=== PATIENT | male | born 1995 | race American Indian/Alaskan Native ===

== ENCOUNTER 2017-12-05 14:52 | Emergency (ER) | payer OTHER ==
[2017-12-05] MEDS ORDERED: PROVENTIL IH ONE (16:12)
[2017-12-05] MEDS ORDERED: ATROVENT IH ONE (16:12)
--- NOTE | 2017-12-05 16:16 | Emergency Department Report ---
ED Asthma HPI - General Chief Complaint: Adult Asthma Stated Complaint: WHEEZING,CHEST PAIN,FEVER Time Seen by Provider: 12/05/17 15:54 Source: patient Mode of arrival: Ambulatory Limitations: No Limitations - History of Present Illness Initial Comments: Patient is 21 years old male history of asthma, presented to the ER with shortness of breath wheezing and cough since yesterday. Patient stated that he is out of his asthma medication. Last asthma attack was one year ago. Patient denied any nausea or vomiting. MD Complaint: "asthma attack", shortness of breath, wheezing -: Last night Asthma History: childhood onset Severity: moderate Context: recent URI Associated Symptoms: dry cough - Related Data Current Asthma Therapy: none Previous Rx's Medication Instructions Recorded Last Taken Type Albuterol Sulfate [Ventolin HFA] 2 puff IH Q4H PRN #1 hfa.aer.ad 11/07/15 Unknown Rx Loratadine [Claritin] 10 mg PO DAILY #30 tablet 11/07/15 Unknown Rx ALBUTEROL Inhaler [ProAir HFA 2 puff IH QID PRN #1 inhalation 04/17/16 Unknown Rx Inhaler] Albuterol *Only Ed* [Proventil 0.5 ml INHALATION Q4H PRN #25 nebu 04/17/16 Unknown Rx 0.5% NEBS] predniSONE [Deltasone] 20 mg PO Q12HR #10 tab 04/17/16 Unknown Rx ALBUTEROL Inhaler [ProAir HFA 2 puff IH QID PRN #1 inhalation 12/05/17 Unknown Rx Inhaler] ALBUTEROL NEB's [Proventil 0.083% 2.5 mg IH TID PRN #30 nebu 12/05/17 Unknown Rx NEBS] Prednisone [predniSONE (Lopez) ER 40 mg PO QDAY #40 tablet. 12/05/17 Unknown Rx TAB] Allergies Allergy/AdvReac Type Severity Reaction Status Date / Time No Known Allergies Allergy Verified 04/06/14 06:16 ED Review of Systems ROS: Stated complaint: WHEEZING,CHEST PAIN,FEVER Other details as noted in HPI Comment: All other systems reviewed and negative Constitutional: denies: chills Respiratory: cough, shortness of breath, SOB with exertion, SOB at rest, wheezing. denies: stridor Cardiovascular: denies: chest pain, palpitations Gastrointestinal: denies: abdominal pain, nausea, vomiting, diarrhea, hematemesis, hematochezia Skin: denies: rash ED Past Medical Hx - Past Medical History Previous Medical History?: Yes Hx Asthma: Yes - Surgical History Past Surgical History?: No - Social History Smoking Status: Never Smoker Substance Use Type: None - Medications Home Medications: Home Medications Medication Instructions Recorded Confirmed Last Taken Type Albuterol Sulfate [Ventolin HFA] 2 puff IH Q4H PRN #1 hfa.aer.ad 11/07/15 Unknown Rx Loratadine [Claritin] 10 mg PO DAILY #30 tablet 11/07/15 Unknown Rx ALBUTEROL Inhaler [ProAir HFA 2 puff IH QID PRN #1 inhalation 04/17/16 Unknown Rx Inhaler] Albuterol *Only Ed* [Proventil 0.5 ml INHALATION Q4H PRN #25 nebu 04/17/16 Unknown Rx 0.5% NEBS] predniSONE [Deltasone] 20 mg PO Q12HR #10 tab 04/17/16 Unknown Rx ALBUTEROL Inhaler [ProAir HFA 2 puff IH QID PRN #1 inhalation 12/05/17 Unknown Rx Inhaler] ALBUTEROL NEB's [Proventil 0.083% 2.5 mg IH TID PRN #30 nebu 12/05/17 Unknown Rx NEBS] Prednisone [predniSONE (Lopez) ER 40 mg PO QDAY #40 tablet. 12/05/17 Unknown Rx TAB] ED Physical Exam - General Limitations: No Limitations General appearance: alert, in no apparent distress - Head Head exam: Present: atraumatic, normocephalic, normal inspection - Eye Eye exam: Present: normal appearance, PERRL - ENT ENT exam: Present: normal exam, normal orophraynx, mucous membranes moist - Neck Neck exam: Present: normal inspection - Respiratory Respiratory exam: Present: wheezes, prolonged expiratory. Absent: respiratory distress, rales, rhonchi, stridor, accessory muscle use, decreased breath sounds - Cardiovascular Cardiovascular Exam: Present: regular rate, normal rhythm, normal heart sounds - GI/Abdominal GI/Abdominal exam: Present: soft, normal bowel sounds. Absent: distended, tenderness, guarding, rebound, rigid, organomegaly, mass, bruit, pulsatile mass - Extremities Exam Extremities exam: Present: normal inspection, full ROM, normal capillary refill - Back Exam Back exam: Present: normal inspection, full ROM. Absent: CVA tenderness (L) - Neurological Exam Neurological exam: Present: alert, oriented X3, CN II-XII intact, normal gait - Skin Skin exam: Present: warm, intact, normal color. Absent: cyanosis, diaphoretic, erythema ED Course Vital Signs 12/05/17 12/05/17 12/05/17 15:05 17:25 18:20 Temperature 100.0 F H Pulse Rate 119 H Pulse Rate [ 109 H 130 H Anterior Bilateral Throughout] Respiratory 20 Rate Respiratory 18 18 Rate [Anterior Bilateral Throughout] Blood Pressure 110/72 O2 Sat by Pulse 96 Oximetry ED Medical Decision Making - Radiology Data Radiology results: report reviewed Referring Physician: BLAZE PARHAM Patient Name: CORNEL BUNCH Date of : 1995 Sex: Male Report Date: 2017-12-05 Report Status: [place] [address] XRay Report Signed Patient: CORNEL BUNCH MR#: [id number] : 1995 Acct:[id number] Age/Sex: 21 / M ADM Date: 12/05/17 Loc: ED Attending Dr: Ordering Physician: BLAZE PARHAM Date of Service: 12/05/17 Procedure(s): XR chest 1V ap Accession Number(s): [id number] cc: BLAZE PARHAM Fluoro Time In Minutes: FINAL REPORT PROCEDURE: Chest. TECHNIQUE: Portable AP view. HISTORY: Cough shortness of breath. COMPARISON: No prior studies are available for comparison. FINDINGS: The heart and mediastinum appear normal. The lungs are clear and well expanded. There are no pleural effusions. The soft tissues and regional skeleton are unremarkable. IMPRESSION: Negative portable chest. Transcribed By: MRM Dictated By: MELVI GARCIA MD Electronically Authenticated By: MELVI GARCIA MD Signed Date/Time: 12/05/17 1232 DD/ 1232 TD/TT: 12/05/17 1232 - Medical Decision Making Patient stated that he is feeling much better, lungs clear on both sides no wheezing. Critical care attestation.: If time is entered above; I have spent that time in minutes in the direct care of this critically ill patient, excluding procedure time. ED Disposition Clinical Impression: Asthma exacerbation Disposition: DC- TO HOME OR SELFCARE Is pt being admited?: No Condition: Stable Instructions: Asthma (ED) Prescriptions: ALBUTEROL Inhaler [ProAir HFA Inhaler] 2 puff IH QID PRN #1 inhalation PRN Reason: Shortness Of Breath ALBUTEROL NEB's [Proventil 0.083% NEBS] 2.5 mg IH TID PRN #30 nebu PRN Reason: Wheezing Prednisone [predniSONE (Lopez) ER TAB] 40 mg PO QDAY #40 tablet. Referrals: PRIMARY CARE, [Primary Care Provider] - 3-5 Days Forms: Work/School Release Form(ED)
--- NOTE | 2017-12-05 16:36 | XRay Report ---
FINAL REPORT PROCEDURE: Chest. TECHNIQUE: Portable AP view. HISTORY: Cough shortness of breath. COMPARISON: No prior studies are available for comparison. FINDINGS: The heart and mediastinum appear normal. The lungs are clear and well expanded. There are no pleural effusions. The soft tissues and regional skeleton are unremarkable. IMPRESSION: Negative portable chest.
[2017-12-05 19:37] VITALS: BP 132/76
== END 2017-12-05 19:37 | disposition home or self-care (01) ==
LOC: ED 14:52
DX: J45.901 Unspecified asthma with (acute) exacerbation (principal)
CPT/HCPCS: 71045; 94644; 96372; 99283; J2930

== ENCOUNTER 2020-12-04 03:24 | Emergency (ER) | payer SELFPAY ==
--- NOTE | 2020-12-04 03:43 | Emergency Department Report ---
ED General Adult HPI - General Stated complaint: ALLERGIC REACTION Time Seen by Provider: 12/04/20 03:25 - History of Present Illness Initial comments: 24 yo AA M pt presents with complaints of facial rash x tonight. Pt states his symptoms started about 4-6 hours after taking ibuprofen. He dneies any past hx of allergies to NSAIDs and states he has taken ibuprofen in the past without any problems. Pt also denies any dysphagia, lip swelling, SOB, or chest pain/tightness. He does report diffuse itchiness to the body. He has not tried any OTC meds for his sxs per pt. PMHx of Asthma. -: Sudden - Related Data Previous Rx's Medication Instructions Recorded Last Taken Type Albuterol Sulfate [Ventolin HFA] 2 puff IH Q4H PRN #1 hfa.aer.ad 11/07/15 Unknown Rx Loratadine (Nf) [Claritin (Nf)] 10 mg PO DAILY #30 tablet 11/07/15 Unknown Rx Albuterol *Only Ed* [Proventil 0.5 ml INHALATION Q4H PRN #25 nebu 04/17/16 Unknown Rx 0.5% NEBS] Albuterol Mdi (or & Nicu Only) 2 puff IH QID PRN #1 inhalation 04/17/16 Unknown Rx [ProAir HFA Inhaler] predniSONE [Deltasone] 20 mg PO Q12HR #10 tab 04/17/16 Unknown Rx ALBUTEROL NEB's [Proventil 0.083% 2.5 mg IH TID PRN #30 nebu 12/05/17 Unknown Rx NEBS] Albuterol Mdi (or & Nicu Only) 2 puff IH QID PRN #1 inhalation 12/05/17 Unknown Rx [ProAir HFA Inhaler] Prednisone [predniSONE (Lopez) ER 40 mg PO QDAY #40 tablet.dr 12/05/17 Unknown Rx TAB] Famotidine [Pepcid] 20 mg PO BID 7 Days #14 tablet 12/04/20 Unknown Rx Loratadine [Claritin] 10 mg PO QDAY 7 Days #7 tablet 12/04/20 Unknown Rx Prednisone [predniSONE 10 mg 10 mg PO .TAPER #1 tab.ds.pk 12/04/20 Unknown Rx (6-Day Pack, 21 Tabs)] Allergies Allergy/AdvReac Type Severity Reaction Status Date / Time No Known Allergies Allergy Verified 04/06/14 06:16 ED Review of Systems ROS: Stated complaint: ALLERGIC REACTION Other details as noted in HPI Constitutional: denies: chills, diaphoresis, fever, malaise ENT: denies: ear pain, throat pain Respiratory: denies: cough, shortness of breath Cardiovascular: denies: chest pain Skin: rash. denies: change in color Neurological: denies: headache Hematological/Lymphatic: denies: swollen glands ED Past Medical Hx - Past Medical History Hx Asthma: Yes - Social History Smoking Status: Never Smoker Substance Use Type: None - Medications Home Medications: Home Medications Medication Instructions Recorded Confirmed Last Taken Type Albuterol Sulfate [Ventolin HFA] 2 puff IH Q4H PRN #1 hfa.aer.ad 11/07/15 Unknown Rx Loratadine (Nf) [Claritin (Nf)] 10 mg PO DAILY #30 tablet 11/07/15 Unknown Rx Albuterol *Only Ed* [Proventil 0.5 ml INHALATION Q4H PRN #25 nebu 04/17/16 Unknown Rx 0.5% NEBS] Albuterol Mdi (or & Nicu Only) 2 puff IH QID PRN #1 inhalation 04/17/16 Unknown Rx [ProAir HFA Inhaler] predniSONE [Deltasone] 20 mg PO Q12HR #10 tab 04/17/16 Unknown Rx ALBUTEROL NEB's [Proventil 0.083% 2.5 mg IH TID PRN #30 nebu 12/05/17 Unknown Rx NEBS] Albuterol Mdi (or & Nicu Only) 2 puff IH QID PRN #1 inhalation 12/05/17 Unknown Rx [ProAir HFA Inhaler] Prednisone [predniSONE (Lopez) ER 40 mg PO QDAY #40 tablet.dr 12/05/17 Unknown Rx TAB] Famotidine [Pepcid] 20 mg PO BID 7 Days #14 tablet 12/04/20 Unknown Rx Loratadine [Claritin] 10 mg PO QDAY 7 Days #7 tablet 12/04/20 Unknown Rx Prednisone [predniSONE 10 mg 10 mg PO .TAPER #1 tab.ds.pk 12/04/20 Unknown Rx (6-Day Pack, 21 Tabs)] ED Physical Exam - General General appearance: alert, in no apparent distress - Head Head exam: Present: atraumatic, normocephalic - Eye Eye exam: Present: other (bilaterally mild,nonerythemic periorbital/forehead rash noted without tenderness to palpation. ). Absent: scleral icterus - ENT ENT exam: Present: normal exam - Neck Neck exam: Present: normal inspection, full ROM - Respiratory Respiratory exam: Present: normal lung sounds bilaterally. Absent: respiratory distress - Cardiovascular Cardiovascular Exam: Present: regular rate, normal rhythm - Extremities Exam Extremities exam: Present: full ROM - Neurological Exam Neurological exam: Present: alert, oriented X3, normal gait - Psychiatric Psychiatric exam: Present: normal affect, normal mood - Skin Skin exam: Present: warm, dry, intact, normal color, rash ED Medical Decision Making - Medical Decision Making 24 yo AA M pt presents with complaints of facial rash x tonight. Pt states his symptoms started about 4-6 hours after taking ibuprofen. He dneies any past hx of allergies to NSAIDs and states he has taken ibuprofen in the past without any problems. Pt also denies any dysphagia, lip swelling, SOB, or chest pain /tightness. He does report diffuse itchiness to the body. He has not tried any OTC meds for his sxs per pt. PMHx of Asthma. Will treat for allergic dermatitis with prednisone and claritin. Discussed avoidance of ibuprofen for now due to possible allergy. Recommend f/u with PCP in 3-5 days. Discussed signs and symptoms that should prompt immediate return to the ED in detail with pt who verbalizes understanding. He is well-appearing, his vitals are wnl, and he is stable for discharge home. Critical care attestation.: If time is entered above; I have spent that time in minutes in the direct care of this critically ill patient, excluding procedure time. ED Disposition Clinical Impression: Allergic dermatitis, Elevated blood pressure reading Disposition: DC- TO HOME OR SELFCARE Is pt being admited?: No Condition: Stable Instructions: Contact Dermatitis, Drug Allergy, Hypertension, Adult Prescriptions: Loratadine [Claritin] 10 mg PO QDAY 7 Days #7 tablet Famotidine [Pepcid] 20 mg PO BID 7 Days #14 tablet Prednisone [predniSONE 10 mg (6-Day Pack, 21 Tabs)] 10 mg PO .TAPER #1 tab.ds.pk Referrals: PRIMARY CARE, [Primary Care Provider] - 3-5 Days [facility] [Provider Group] - 3-5 Days
[2020-12-04 03:48] VITALS: BP 140/86
== END 2020-12-04 04:01 | disposition home or self-care (01) ==
LOC: ED 03:24
DX: L23.9 Allergic contact dermatitis, unspecified cause (principal); R03.0 Elevated blood-pressure reading, without diagnosis of hypertension; J45.909 Unspecified asthma, uncomplicated; Z79.899 Other long term (current) drug therapy
CPT/HCPCS: 99282

== ENCOUNTER 2021-07-06 13:43 | Emergency (ER) | payer SELFPAY ==
[2021-07-06] MEDS ORDERED: ALBUTEROL 2.5 MG/3 ML NEBU IH ONE (14:38)
[2021-07-06] MEDS ORDERED: IPRATROPIUM 0.02% NEBU 2.5 ML IH ONE (14:38)
[2021-07-06] MEDS ORDERED: dexAMETHasone 20 MG/5 ML VIAL IM ONE (14:38)
--- NOTE | 2021-07-06 14:57 | Emergency Department Report ---
- General Chief Complaint: Dyspnea/Respdistress Stated Complaint: SOB Time Seen by Provider: 07/06/21 14:32 Source: patient Mode of arrival: Ambulatory Limitations: No Limitations - History of Present Illness Initial Comments: Patient is a 25-year-old male presents emergency room complaints of shortness of breath that began 4 days ago. Patient states that he has a history of asthma and has been out of his inhaler and nebulizer solution for 2 years. He states he has not had an exacerbation of his asthma in 2 years. He has associated cough with mucus production, subjective fever, chest tightness, sore throat. He denies any vomiting, diarrhea, pleuritic pain, leg swelling, hemoptysis. He has not been vaccinated for COVID-19. He has not been tested for COVID-19 since be coming sick. No other past medical history. No allergies to medications. He is a never smoker. - Related Data Previous Rx's Medication Instructions Recorded Last Taken Type Albuterol Sulfate [Ventolin HFA] 2 puff IH Q4H PRN #1 hfa.aer.ad 11/07/15 Unknown Rx Loratadine (Nf) [Claritin (Nf)] 10 mg PO DAILY #30 tablet 11/07/15 Unknown Rx Albuterol *Only Ed* [Proventil 0.5 ml INHALATION Q4H PRN #25 nebu 04/17/16 Unknown Rx 0.5% NEBS] Albuterol Mdi (or & Nicu Only) 2 puff IH QID PRN #1 inhalation 04/17/16 Unknown Rx [ProAir HFA Inhaler] Prednisone [predniSONE (Lopez) ER 40 mg PO QDAY #40 tablet. 12/05/17 Unknown Rx TAB] Famotidine [Pepcid] 20 mg PO BID 7 Days #14 tablet 12/04/20 Unknown Rx Loratadine [Claritin] 10 mg PO QDAY 7 Days #7 tablet 12/04/20 Unknown Rx Prednisone [predniSONE 10 mg 10 mg PO .TAPER #1 tab.ds.pk 12/04/20 Unknown Rx (6-Day Pack, 21 Tabs)] ALBUTEROL NEB's [Proventil 0.083% 2.5 mg IH TID PRN #1 box 07/06/21 Unknown Rx NEBS] Albuterol Mdi (or & Nicu Only) 2 puff IH QID PRN #1 inhalation 07/06/21 Unknown Rx [ProAir HFA Inhaler] predniSONE [Deltasone] 40 mg PO QDAY 5 Days #10 tab 07/06/21 Unknown Rx Allergies Allergy/AdvReac Type Severity Reaction Status Date / Time No Known Allergies Allergy Verified 04/06/14 06:16 ED Review of Systems ROS: Stated complaint: SOB Other details as noted in HPI Comment: All other systems reviewed and negative ED Past Medical Hx - Past Medical History Hx Asthma: Yes - Social History Smoking Status: Never Smoker Substance Use Type: None - Medications Home Medications: Home Medications Medication Instructions Recorded Confirmed Last Taken Type Albuterol Sulfate [Ventolin HFA] 2 puff IH Q4H PRN #1 hfa.aer.ad 11/07/15 Unknown Rx Loratadine (Nf) [Claritin (Nf)] 10 mg PO DAILY #30 tablet 11/07/15 Unknown Rx Albuterol *Only Ed* [Proventil 0.5 ml INHALATION Q4H PRN #25 nebu 04/17/16 Unknown Rx 0.5% NEBS] Albuterol Mdi (or & Nicu Only) 2 puff IH QID PRN #1 inhalation 04/17/16 Unknown Rx [ProAir HFA Inhaler] Prednisone [predniSONE (Lopez) ER 40 mg PO QDAY #40 tablet.dr 12/05/17 Unknown Rx TAB] Famotidine [Pepcid] 20 mg PO BID 7 Days #14 tablet 12/04/20 Unknown Rx Loratadine [Claritin] 10 mg PO QDAY 7 Days #7 tablet 12/04/20 Unknown Rx Prednisone [predniSONE 10 mg 10 mg PO .TAPER #1 tab.ds.pk 12/04/20 Unknown Rx (6-Day Pack, 21 Tabs)] ALBUTEROL NEB's [Proventil 0.083% 2.5 mg IH TID PRN #1 box 07/06/21 Unknown Rx NEBS] Albuterol Mdi (or & Nicu Only) 2 puff IH QID PRN #1 inhalation 07/06/21 Unknown Rx [ProAir HFA Inhaler] predniSONE [Deltasone] 40 mg PO QDAY 5 Days #10 tab 07/06/21 Unknown Rx ED Physical Exam - General Limitations: No Limitations General appearance: alert, in no apparent distress - Head Head exam: Present: atraumatic, normocephalic - Eye Eye exam: Present: normal appearance - ENT ENT exam: Present: mucous membranes moist - Respiratory Respiratory exam: Present: wheezes, decreased breath sounds, prolonged expiratory. Absent: respiratory distress, rales, rhonchi, stridor, chest wall tenderness, accessory muscle use - Cardiovascular Cardiovascular Exam: Present: normal rhythm, tachycardia, normal heart sounds. Absent: systolic murmur, diastolic murmur, rubs, gallop - Neurological Exam Neurological exam: Present: alert, oriented X3 - Psychiatric Psychiatric exam: Present: normal affect, normal mood - Skin Skin exam: Present: warm, dry, intact ED Course Vital Signs 07/06/21 07/06/21 13:56 16:37 Temperature 98.5 F 98.7 F Pulse Rate 109 H 112 H Respiratory 20 Rate Blood Pressure 151/82 124/80 [Right] O2 Sat by Pulse 98 Oximetry ED Medical Decision Making - Lab Data Vital Signs 07/06/21 07/06/21 13:56 16:37 Temperature 98.5 F 98.7 F Pulse Rate 109 H 112 H Respiratory 20 Rate Blood Pressure 151/82 124/80 [Right] O2 Sat by Pulse 98 Oximetry - EKG Data EKG shows normal: sinus rhythm, axis, intervals, QRS complexes, ST-T waves Rate: tachycardia - Radiology Data Radiology results: report reviewed Ordering Physician: CHRIS LOMELI Date of Service: 07/06/21 Procedure(s): XR chest routine 2V Accession Number(s): [id number] cc: CHRIS LOMELI Fluoro Time In Minutes: CHEST 2 VIEWS INDICATION / CLINICAL INFORMATION: cough, shortness of breath, chest tightness. COMPARISON: 12/05/2017 FINDINGS: SUPPORT DEVICES: None. HEART / MEDIASTINUM: No significant abnormality. LUNGS / PLEURA: No significant pulmonary or pleural abnormality. No pneumothorax. ADDITIONAL FINDINGS: No significant additional findings. IMPRESSION: 1. No acute findings. Signer Name: Alexander Galeas MD Signed: 07/06/2021 3:15 PM Workstation Name: [id number] Transcribed By: BRENDA Dictated By: Alexander Galeas MD Electronically Authenticated By: Alexander Galeas MD Signed Date/Time: 07/06/211514 DD/ 14 TD/TT: - Medical Decision Making Patient is a 25-year-old male presents emergency room complaints of shortness of breath that began 4 days ago. Patient states that he has a history of asthma and has been out of his inhaler and nebulizer solution for 2 years. He states he has not had an exacerbation of his asthma in 2 years. He has associated cough with mucus production, subjective fever, chest tightness, sore throat. He denies any vomiting, diarrhea, pleuritic pain, leg swelling, hemoptysis. He has not been vaccinated for COVID-19. He has not been tested for COVID-19 since becoming sick. No other past medical history. No allergies to medications. He is a never smoker. Vitals with tachycardia, otherwise stable, no hypoxia. On exam patient has wheezing bilaterally, prolonged expiratory phase, decreased breath sounds bilaterally. Chest x-ray: 1. No acute findings. Patient given continuous neb treatment and dexamethasone IM while in the emergency department, on repeat examination wheezing has significantly improved and patient is feeling much better and he now has good air movement with mild expiratory wheeze. Symptoms likely related to URI and acute asthma exacerbation. Discussed the possibility of COVID-19 with patient, discussed return precautions, discussed outpatient testing, discussed self quarantine. Patient has no hypoxia or signs of pneumonia on x-ray, does not meet admission criteria at this time. Patient given prescription for medications. Advised patient Please take medication as prescribed. Please increase your fluid intake over the next several days. May take Tylenol as needed for fever or body aches. Follow-up with a primary care doctor for reexamination. Return to emergency room immediately for any new or worsening symptoms including but not limited to difficulty breathing, shortness of breath, severe chest pain, unable to tolerate by mouth intake, etc. recommend for you to get outpatient COVID-19 testing and if positive please self quarantine for 10 days from onset of your symptoms. Critical care attestation.: If time is entered above; I have spent that time in minutes in the direct care of this critically ill patient, excluding procedure time. ED Disposition Clinical Impression: Upper respiratory infection Qualifiers: URI type: unspecified URI Qualified Code(s): J06.9 - Acute upper respiratory infection, unspecified Asthma exacerbation Qualifiers: Asthma severity: unspecified severity Asthma persistence: unspecified Qualified Code(s): J45.901 - Unspecified asthma with (acute) exacerbation Disposition: HOME / SELF CARE / HOMELESS Is pt being admited?: No Does the pt Need Aspirin: No Condition: Stable Instructions: Asthma, Adult, Viral Respiratory Infection Additional Instructions: Please take medication as prescribed. Please increase your fluid intake over the next several days. May take Tylenol as needed for fever or body aches. Follow-up with a primary care doctor for reexamination. Return to emergency room immediately for any new or worsening symptoms including but not limited to difficulty breathing, shortness of breath, severe chest pain, unable to tolerate by mouth intake, etc. recommend for you to get outpatient COVID-19 testing and if positive please self quarantine for 10 days from onset of your symptoms. Prescriptions: predniSONE [Deltasone] 40 mg PO QDAY 5 Days #10 tab Albuterol Mdi (or & Nicu Only) [ProAir HFA Inhaler] 2 puff IH QID PRN #1 inhalation PRN Reason: Shortness Of Breath ALBUTEROL NEB's [Proventil 0.083% NEBS] 2.5 mg IH TID PRN #1 box PRN Reason: Wheezing Referrals: BECCA CONTE MD [Staff Physician] - 2-3 Days [facility] [Provider Group] - 2-3 Days Time of Disposition: 15:50 Print Language: ANDORRAN
--- NOTE | 2021-07-06 15:20 | XRay Report ---
CHEST 2 VIEWS INDICATION / CLINICAL INFORMATION: cough, shortness of breath, chest tightness. COMPARISON: 12/05/2017 FINDINGS: SUPPORT DEVICES: None. HEART / MEDIASTINUM: No significant abnormality. LUNGS / PLEURA: No significant pulmonary or pleural abnormality. No pneumothorax. ADDITIONAL FINDINGS: No significant additional findings. IMPRESSION: 1. No acute findings. Signer Name: Alexander Galeas MD Signed: 07/06/2021 3:15 PM Workstation Name: [id number]
[2021-07-06 16:42] VITALS: BP 124/80
--- NOTE | 2021-07-09 12:21 | Electrocardiograph Report ---
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
== END 2021-07-06 16:37 | disposition home or self-care (01) ==
LOC: ED 13:43
DX: J06.9 Acute upper respiratory infection, unspecified (principal); J45.901 Unspecified asthma with (acute) exacerbation; Z79.899 Other long term (current) drug therapy
CPT/HCPCS: 71046; 93005; 94640; 96372; 99283; J1100

== ENCOUNTER 2021-08-24 11:03 | Emergency (ER) | payer SELFPAY | END 2021-08-24 12:52 | LOC: ED 11:03 | DX: J45.909 Unspecified asthma, uncomplicated (principal); Z53.21 Procedure and treatment not carried out due to patient leaving prior to being seen by health care provider ==

== ENCOUNTER 2021-08-25 08:48 | Emergency (ER) | payer SELFPAY ==
[2021-08-25 08:55] VITALS: BP 125/76
--- NOTE | 2021-08-25 09:34 | Emergency Department Report ---
ED General Adult HPI - General Chief complaint: Recheck/Abnormal Lab/Rx Stated complaint: SEEN HERE YESTERDAY/FOR RX REFILL Time Seen by Provider: 08/25/21 09:00 Source: patient Mode of arrival: Ambulatory Limitations: No Limitations - History of Present Illness Initial comments: Patient presents secondary to asthma exacerbation request for steroids. He states that over the last couple of days, the weather changes really "knocked his asthma for a loop."He has been having ongoing trouble breathing. Because of this, he decided to come here. There has been no new cough or congestion. He has had no new fevers. He has no trauma. He has not had any other new sick contacts. Patient states that the last time he had been on steroids was several weeks to months ago. He has been admitted once before with asthma. That was when he was a child. He has never been intubated. - Related Data Previous Rx's Medication Instructions Recorded Last Taken Type Albuterol Sulfate [Ventolin HFA] 2 puff IH Q4H PRN #1 hfa.aer.ad 11/07/15 Unknown Rx Loratadine (Nf) [Claritin (Nf)] 10 mg PO DAILY #30 tablet 11/07/15 Unknown Rx Albuterol *Only Ed* [Proventil 0.5 ml INHALATION Q4H PRN #25 nebu 04/17/16 Unknown Rx 0.5% NEBS] Albuterol Mdi (or & Nicu Only) 2 puff IH QID PRN #1 inhalation 04/17/16 Unknown Rx [ProAir HFA Inhaler] Famotidine [Pepcid] 20 mg PO BID 7 Days #14 tablet 12/04/20 Unknown Rx Loratadine [Claritin] 10 mg PO QDAY 7 Days #7 tablet 12/04/20 Unknown Rx ALBUTEROL NEB's [Proventil 0.083% 2.5 mg IH TID PRN #1 box 07/06/21 Unknown Rx NEBS] Albuterol Mdi (or & Nicu Only) 2 puff IH QID PRN #1 inhalation 07/06/21 Unknown Rx [ProAir HFA Inhaler] methylPREDNISolone [Medrol 4MG 4 mg PO DAILY #1 tab.ds.pk 08/25/21 Unknown Rx DOSEPAK (21 tabs)] Allergies Allergy/AdvReac Type Severity Reaction Status Date / Time No Known Allergies Allergy Verified 08/25/21 08:49 ED Review of Systems ROS: Stated complaint: SEEN HERE YESTERDAY/FOR RX REFILL Other details as noted in HPI Comment: All other systems reviewed and negative Constitutional: denies: fever Eyes: denies: vision change ENT: denies: throat pain Respiratory: see HPI Cardiovascular: denies: chest pain Endocrine: denies: unexplained weight loss Gastrointestinal: denies: abdominal pain Genitourinary: denies: urgency Musculoskeletal: denies: back pain Skin: denies: rash Neurological: denies: headache Hematological/Lymphatic: denies: easy bruising ED Past Medical Hx - Past Medical History Hx Asthma: Yes - Family History Family history: no significant - Social History Smoking Status: Never Smoker Substance Use Type: None - Medications Home Medications: Home Medications Medication Instructions Recorded Confirmed Last Taken Type Albuterol Sulfate [Ventolin HFA] 2 puff IH Q4H PRN #1 hfa.aer.ad 11/07/15 Unknown Rx Loratadine (Nf) [Claritin (Nf)] 10 mg PO DAILY #30 tablet 11/07/15 Unknown Rx Albuterol *Only Ed* [Proventil 0.5 ml INHALATION Q4H PRN #25 nebu 04/17/16 Unknown Rx 0.5% NEBS] Albuterol Mdi (or & Nicu Only) 2 puff IH QID PRN #1 inhalation 04/17/16 Unknown Rx [ProAir HFA Inhaler] Famotidine [Pepcid] 20 mg PO BID 7 Days #14 tablet 12/04/20 Unknown Rx Loratadine [Claritin] 10 mg PO QDAY 7 Days #7 tablet 12/04/20 Unknown Rx ALBUTEROL NEB's [Proventil 0.083% 2.5 mg IH TID PRN #1 box 07/06/21 Unknown Rx NEBS] Albuterol Mdi (or & Nicu Only) 2 puff IH QID PRN #1 inhalation 07/06/21 Unknown Rx [ProAir HFA Inhaler] methylPREDNISolone [Medrol 4MG 4 mg PO DAILY #1 tab.ds.pk 08/25/21 Unknown Rx DOSEPAK (21 tabs)] ED Physical Exam - General Limitations: No Limitations, Other ( Pulse ox noted and normal) General appearance: alert, in no apparent distress - Head Head exam: Present: atraumatic, normocephalic - Eye Eye exam: Present: normal appearance, EOMI - ENT ENT exam: Present: normal exam, normal orophraynx - Neck Neck exam: Present: normal inspection. Absent: meningismus - Respiratory Respiratory exam: Present: normal lung sounds bilaterally. Absent: respiratory distress - Cardiovascular Cardiovascular Exam: Present: regular rate, normal rhythm - GI/Abdominal GI/Abdominal exam: Present: soft - Extremities Exam Extremities exam: Present: normal capillary refill - Back Exam Back exam: Present: normal inspection - Neurological Exam Neurological exam: Present: alert, oriented X3, normal gait. Absent: motor sensory deficit - Psychiatric Psychiatric exam: Present: normal affect, normal mood - Skin Skin exam: Present: warm, dry ED Course Vital Signs 08/25/21 08:53 Temperature 98.3 F Pulse Rate 98 H Respiratory 20 Rate Blood Pressure 125/76 O2 Sat by Pulse 96 Oximetry - Reevaluation(s) Reevaluation #1: 08/25/21 09:33 patient was discharged ED Medical Decision Making - Medical Decision Making patient presented secondary difficulty breathing and request specifically for steroids. He has a history of asthma. He is in no respiratory distress. There is no evidence of respiratory failure. He has no adventitial breath sounds to suggest pneumonia. There is no diminished breath sounds at would suggest pneumothorax. Patient was treated symptomatically with outpatient referral. He was given a prescription for Medrol Dosepak. Critical Care Time: No Critical care attestation.: If time is entered above; I have spent that time in minutes in the direct care of this critically ill patient, excluding procedure time. ED Disposition Clinical Impression: Asthma exacerbation Qualifiers: Asthma severity: mild Asthma persistence: intermittent Qualified Code(s): J45.21 - Mild intermittent asthma with (acute) exacerbation Disposition: HOME / SELF CARE / HOMELESS Is pt being admited?: No Condition: Stable Instructions: Bronchospasm, Adult, Preventing Asthma Attacks From Outdoor Allergens, Teen Additional Instructions: USE THE INHALER. SEE YOUR DOCTOR FOR RECHECK. RETURN FOR PROBLEMS. Prescriptions: methylPREDNISolone [Medrol 4MG DOSEPAK (21 tabs)] 4 mg PO DAILY #1 tab.ds.pk Referrals: ELIAS DEL REAL MD [Staff Physician] - 3-5 Days PRIMARY CAREMD [Referring] - 3-5 Days
== END 2021-08-25 09:50 | disposition home or self-care (01) ==
LOC: ED 08:48
DX: J45.901 Unspecified asthma with (acute) exacerbation (principal)
CPT/HCPCS: 99281

== ENCOUNTER 2022-01-29 09:47 | Emergency (ER) | payer SELFPAY ==
[2022-01-29 10:23] VITALS: BP 120/76
--- NOTE | 2022-01-29 10:48 | Emergency Department Report ---
ED Asthma HPI - General Chief Complaint: Recheck/Abnormal Lab/Rx Stated Complaint: HERE FOR RX REFILL /PREDISONE/INHALER Time Seen by Provider: 01/29/22 10:26 Source: patient Mode of arrival: Ambulatory Limitations: No Limitations - History of Present Illness Initial Comments: 26-year-old black male with a past medical history of asthma presents to the emergency department requesting refill of albuterol inhaler and steroid Dosepak. He states that for the past few days he has had to use his inhaler more often than usual and has had some persistent wheezing. He states that he just use inhaler and nebulizer prior to arrival and wheezing and shortness of breath has improved, but he ran out of his inhaler and feels that he may need a round of steroids. He states that he is generally successful in management of his asthma at home. He denies shortness of breath, and chest tightness at this time. MD Complaint: "asthma attack", wheezing -: Gradual, days(s) (2 to) Asthma History: childhood onset Severity: mild Context: allergen exposure Associated Symptoms: denies: productive cough, dry cough, fever, chest pain Treatments Prior to Arrival: inhaled bronchodilator - Related Data Current Asthma Therapy: inhaled bronchodilator Previous Rx's Medication Instructions Recorded Last Taken Type Albuterol Sulfate [Ventolin HFA] 2 puff IH Q4H PRN #1 hfa.aer.ad 11/07/15 Unknown Rx Loratadine (Nf) [Claritin (Nf)] 10 mg PO DAILY #30 tablet 11/07/15 Unknown Rx Albuterol *Only Ed* [Proventil 0.5 ml INHALATION Q4H PRN #25 nebu 04/17/16 Unknown Rx 0.5% NEBS] Albuterol Mdi (or & Nicu Only) 2 puff IH QID PRN #1 inhalation 04/17/16 Unknown Rx [ProAir HFA Inhaler] Famotidine [Pepcid] 20 mg PO BID 7 Days #14 tablet 12/04/20 Unknown Rx Loratadine [Claritin] 10 mg PO QDAY 7 Days #7 tablet 12/04/20 Unknown Rx ALBUTEROL NEB's [Proventil 0.083% 2.5 mg IH TID PRN #1 box 07/06/21 Unknown Rx NEBS] Albuterol Mdi (or & Nicu Only) 2 puff IH QID PRN #1 inhalation 07/06/21 Unknown Rx [ProAir HFA Inhaler] methylPREDNISolone [Medrol 4MG 4 mg PO DAILY #1 tab.ds.pk 08/25/21 Unknown Rx DOSEPAK (21 tabs)] Albuterol Mdi (or & Nicu Only) 2 puff IH QID PRN #8.5 gram 01/29/22 Unknown Rx [ProAir HFA Inhaler] Prednisone [predniSONE 10 mg 10 mg PO .TAPER #1 pack 01/29/22 Unknown Rx (6-Day Pack, 21 Tabs)] Allergies Allergy/AdvReac Type Severity Reaction Status Date / Time No Known Allergies Allergy Verified 08/25/21 08:49 ED Review of Systems ROS: Stated complaint: HERE FOR RX REFILL /PREDISONE/INHALER Other details as noted in HPI Comment: All other systems reviewed and negative Constitutional: denies: chills, fever Respiratory: wheezing. denies: cough, shortness of breath, SOB with exertion, SOB at rest Cardiovascular: denies: chest pain, palpitations, dyspnea on exertion, orthopnea Gastrointestinal: denies: abdominal pain, nausea, vomiting, diarrhea, hematemesis, melena, hematochezia Genitourinary: denies: urgency, dysuria, frequency Musculoskeletal: denies: back pain Neurological: denies: headache, weakness, numbness ED Past Medical Hx - Past Medical History Hx Asthma: Yes - Social History Smoking Status: Never Smoker Substance Use Type: None - Medications Home Medications: Home Medications Medication Instructions Recorded Confirmed Last Taken Type Albuterol Sulfate [Ventolin HFA] 2 puff IH Q4H PRN #1 hfa.aer.ad 11/07/15 Unknown Rx Loratadine (Nf) [Claritin (Nf)] 10 mg PO DAILY #30 tablet 11/07/15 Unknown Rx Albuterol *Only Ed* [Proventil 0.5 ml INHALATION Q4H PRN #25 nebu 04/17/16 Unknown Rx 0.5% NEBS] Albuterol Mdi (or & Nicu Only) 2 puff IH QID PRN #1 inhalation 04/17/16 Unknown Rx [ProAir HFA Inhaler] Famotidine [Pepcid] 20 mg PO BID 7 Days #14 tablet 12/04/20 Unknown Rx Loratadine [Claritin] 10 mg PO QDAY 7 Days #7 tablet 12/04/20 Unknown Rx ALBUTEROL NEB's [Proventil 0.083% 2.5 mg IH TID PRN #1 box 07/06/21 Unknown Rx NEBS] Albuterol Mdi (or & Nicu Only) 2 puff IH QID PRN #1 inhalation 07/06/21 Unknown Rx [ProAir HFA Inhaler] methylPREDNISolone [Medrol 4MG 4 mg PO DAILY #1 tab.ds.pk 08/25/21 Unknown Rx DOSEPAK (21 tabs)] Albuterol Mdi (or & Nicu Only) 2 puff IH QID PRN #8.5 gram 01/29/22 Unknown Rx [ProAir HFA Inhaler] Prednisone [predniSONE 10 mg 10 mg PO .TAPER #1 pack 01/29/22 Unknown Rx (6-Day Pack, 21 Tabs)] ED Physical Exam - General Limitations: No Limitations General appearance: alert, in no apparent distress - Head Head exam: Present: atraumatic, normocephalic - Eye Eye exam: Present: normal appearance. Absent: conjunctival injection - Neck Neck exam: Present: normal inspection. Absent: tenderness, lymphadenopathy - Respiratory Respiratory exam: Present: wheezes (Intermittent expiratory). Absent: respiratory distress, rales, rhonchi, stridor, chest wall tenderness - Cardiovascular Cardiovascular Exam: Present: regular rate, normal heart sounds - GI/Abdominal GI/Abdominal exam: Present: soft, normal bowel sounds. Absent: distended, tenderness, guarding, rebound, rigid - Extremities Exam Extremities exam: Present: normal inspection, normal capillary refill. Absent: pedal edema, joint swelling, calf tenderness - Back Exam Back exam: Present: normal inspection - Neurological Exam Neurological exam: Present: alert, oriented X3, normal gait - Psychiatric Psychiatric exam: Present: normal affect, normal mood - Skin Skin exam: Present: warm, dry, intact, normal color ED Course Vital Signs 01/29/22 01/29/22 10:22 11:05 Temperature 98.7 F 98.7 F Pulse Rate 64 64 Respiratory 18 18 Rate Blood Pressure 120/76 Blood Pressure 120/76 [Right] O2 Sat by Pulse 99 99 Oximetry ED Medical Decision Making - Medical Decision Making 26-year-old black male with a past medical history of asthma presents to the [facility] department requesting refill of albuterol inhaler and steroid Dosepak. He states that for the past few days he has had to use his inhaler more often than usual and has had some persistent wheezing. He states that he just use inhaler and nebulizer prior to arrival and wheezing and shortness of breath has improved, but he ran out of his inhaler and feels that he may need a round of steroids. He states that he is generally successful in management of his asthma at home. He denies shortness of breath, and chest tightness at this time. Patient denies shortness of breath and chest tightness at this time. He is noted to have intermittent expiratory wheezes on exam. He refuses DuoNeb treatment at this time. He will be discharged home with prescription for albuterol inhaler along with prednisone Dosepak to take over the next 6 days. He is advised to take medications as prescribed. And follow-up with primary care provider or pulmonary doctor if no improvement or worsening symptoms. He verbalized understanding of and agreement with plan of care. Critical care attestation.: If time is entered above; I have spent that time in minutes in the direct care of this critically ill patient, excluding procedure time. ED Disposition Clinical Impression: Asthma Qualifiers: Asthma severity: mild Asthma persistence: intermittent Asthma complication type: uncomplicated Qualified Code(s): J45.20 - Mild intermittent asthma, uncomplicated Disposition: 01 HOME / SELF CARE / HOMELESS Is pt being admited?: No Does the pt Need Aspirin: No Condition: Stable Instructions: Asthma, Adult, [id number], Asthma Attack Prevention, Adult, Asthma (ED) Additional Instructions: Take medications as prescribed. Follow-up with primary care provider or lung specialist for further evaluation and management. Return to the emergency department as needed. Prescriptions: Prednisone [predniSONE 10 mg (6-Day Pack, 21 Tabs)] 10 mg PO .TAPER #1 pack Albuterol Mdi (or & Nicu Only) [ProAir HFA Inhaler] 2 puff IH QID PRN #8.5 gram PRN Reason: Shortness Of Breath Referrals: MASOOD WATERMAN MD [Staff Physician] - 3-5 Days GLADIS LUGO MD [Referring] - 3-5 Days Time of Disposition: 10:48
== END 2022-01-29 11:07 | disposition home or self-care (01) ==
LOC: ED 09:47
DX: J45.909 Unspecified asthma, uncomplicated (principal)
CPT/HCPCS: 99282

== ENCOUNTER 2022-04-18 14:01 | Emergency (ER) | payer SELFPAY ==
[2022-04-18] MEDS ORDERED: IPRATROPIUM/ALBUTEROL SULFATE 3 ML AMPUL.NEB IH ONE (15:32)
[2022-04-18 15:33] VITALS: BP 125/79
[2022-04-18] MEDS ORDERED: BENZONATATE 100 MG CAP PO ONE (15:33)
[2022-04-18] MEDS ORDERED: methylPREDNISolone Sod Succinate 125 MG/2 ML INJ IM ONE (15:33)
== END 2022-04-19 01:00 | disposition left against medical advice (07) ==
LOC: ED 14:01
DX: J45.909 Unspecified asthma, uncomplicated (principal); R06.02 Shortness of breath; Z53.21 Procedure and treatment not carried out due to patient leaving prior to being seen by health care provider